=== PATIENT | female | born 1935 | race Caucasian/White ===

== ENCOUNTER 2016-09-06 08:49 | Outpatient (CLI) | payer OTHER ==
[~2016-09-06 08:49] MED LIST: ADVAIR DISKU1 INH; ALBUTEROL SUL0.083 % IN; ASPIRIN 81 LOW81 MG PO; COMBIVENT RESPIMAT IN; COQ-1010 MG PO; DOXYCYCLINE100 MG PO; FERROUS SULFAT324 M1 PO; FLUTICASONE PR50 MCG; IPRATROPIUM BROMIDE/ IN; LASIX20 MG PO; LEVAQUIN500 MG PO; LEVO-T88 MCG PO; LISINOPRIL/HYDR1 TA1 PO; LISINOPRIL10 MG PO; PANTOPRAZOLE SO40 MG PO; PREDNISONE10 MG PO; PREDNISONE20 MG PO; RED YEAST RICE PO; VITAMIN B-12500 MC1 PO; VITAMIN D31000 UNI4 PO
--- NOTE | 2016-09-06 10:44 | DIAGNOSTIC IMAGING REPORT ---
PROCEDURE: US SOFT TISSUE THYR/NECK/HEAD INDICATION: NONTOXIC MULTINODULAR GOITER TECHNIQUE: Sosa scale and color Doppler sonographic images of the thyroid gland were obtained. COMPARISON: Thyroid ultrasound 09/10/2013. FINDINGS: RIGHT LOBE: Measures 6.6 x 3.2 x 3.4 cm (previously 5.8 x 2.7 x 3.2 cm) and is diffusely inhomogeneous. There are several nodules, largest 1.7 cm in the upper pole, unchanged. LEFT LOBE: Measures 6.2 x 2 x 3.4 cm (previously 5 x 1.4 x 2.3 cm) and is diffusely inhomogeneous.. There is a 1.8 cm nodule with partial peripheral calcifications in the upper pole. ISTHMUS: Measures 1.4 cm. IMPRESSION: 1. Slight increase in the size of the mildly enlarged heterogeneous multinodular thyroid gland, most consistent with a multinodular goiter
== END 2016-09-06 23:00 ==
LOC: US SRH 08:49
DX: E04.2 Nontoxic multinodular goiter (principal)